=== PATIENT | female | born 1965 | race American Indian/Alaskan Native ===

== ENCOUNTER 2020-11-27 09:06 | Outpatient (CLI) | payer BC ==
[2020-11-27 09:50] LABS: Hematocrit 40.2 % (30.3-42.9); Hemoglobin 13.4 gm/dl (10.1-14.3); Mean Corpuscular HGB Conc 33 % (30-34); Mean Corpuscular Volume 91 fl (79-97); Platelet Count 212 K/mm3 (140-440); Red Blood Count 4.42 M/mm3 (3.65-5.03)
[2020-11-27 10:19] LABS: Alanine Aminotransferase 11 units/L (7-56); Albumin 4.2 g/dL (3.9-5); Blood Urea Nitrogen 6 mg/dL (7-17); Calcium 9.2 mg/dL (8.4-10.2); Chol/HDL Ratio 2.19 %; HDL Cholesterol 99 mg/dL (40-59); Hemolysis Index 3; LDL Cholesterol,Direct 128 mg/dL (50-130)
[2020-11-27 10:33] LABS: BUN/Creatinine Ratio 9
== END 2020-11-27 09:07 | disposition home or self-care (01) ==
LOC: LAB 09:06
PROVIDERS: ATTEND Internal Medicine
DX: M17.12 Unilateral primary osteoarthritis, left knee (principal); M79.604 Pain in right leg
CPT/HCPCS: 36415; 80053; 80061; 83036; 85027

== ENCOUNTER 2021-05-19 07:50 | Outpatient (CLI) | payer BC ==
[2021-05-19 08:58] LABS: Alanine Aminotransferase 91 units/L (7-56); Albumin 3.9 g/dL (3.9-5); Blood Urea Nitrogen 8 mg/dL (7-17); Calcium 9.5 mg/dL (8.4-10.2); Hemolysis Index 1
[2021-05-19 09:00] LABS: BUN/Creatinine Ratio 16
[2021-05-19 15:49] LABS: Basophils % (Auto) 0.4 % (0.0-1.8); Eosinophils # (Auto) 0.1 K/mm3 (0.0-0.4); Eosinophils % (Auto) 1.3 % (0.0-4.3); Hemoglobin 11.9 gm/dl (10.1-14.3); Lymphocytes % (Auto) 46.5 % (13.4-35.0); Mean Corpuscular HGB Conc 33 % (30-34); Mean Corpuscular Volume 89 fl (79-97); Monocytes # (Auto) 0.5 K/mm3 (0.0-0.8); Monocytes % (Auto) 12.4 % (0.0-7.3); Platelet Count 232 K/mm3 (140-440); Red Blood Count 4.06 M/mm3 (3.65-5.03); Red Cell Distribution Width 13.1 % (13.2-15.2)
[2021-05-19 16:34] LABS: Chol/HDL Ratio 2.42 %; HDL Cholesterol 64 mg/dL (40-59); LDL Cholesterol,Direct 87 mg/dL (50-130)
== END 2021-05-19 07:51 | disposition home or self-care (01) ==
LOC: LAB 07:50
PROVIDERS: ATTEND Internal Medicine
DX: I10 Essential (primary) hypertension (principal); E78.2 Mixed hyperlipidemia
CPT/HCPCS: 36415; 80053; 80061; 85025